=== PATIENT | male | born 1955 | race Caucasian/White ===

== ENCOUNTER 2020-10-17 17:48 | Emergency (ER) | payer MEDICARE, SELFPAY ==
[2020-10-17 17:56] VITALS: BP 171/106; PULSE 107; RESP 16; TEMP 36.6; O2SAT 94; BMI 34.4
--- NOTE | 2020-10-17 18:14 | W.ED.HEATRA ---
HPI - Head Injury General: Chief complaint: Head Injury Stated complaint: LAC HEAD INJURY Time Seen by Provider: 10/17/20 17:53 Source: patient and EMS Mode of arrival: EMS Limitations: no limitations History of Present Illness: HPI Narrative: 65-year-old male states he is working on a project today had a piece of tendon 4 x 4 slide off a roof struck him in the head. He states this happened just prior to arrival. He came in by EMS. He denies any loss of consciousness denies any nausea vomiting denies any headache. He denies any neck pain. He is not on any blood thinners. He states that he was bleeding quite a bit from the wound. He does have a 3 cm laceration to his forehead. Denies any other injuries. Associated symptoms: Deny nausea, neck pain or vomiting Review of Systems Const: Denies: fever(s), chills, body aches or change in appetite Eyes: Denies: blurry vision or eye discomfort ENMT: Denies: throat pain or dental pain Card: Denies: chest pain Resp: Denies: dyspnea GI: Denies: abdominal pain, nausea, vomiting or diarrhea : Denies: dysuria Musc: Denies: neck pain or back pain Skin/Breast: Denies: rash Neuro: Denies: headache(s) Psych: Denies: depression Anatoly/Lymph: Denies: easy bruising All/Imm: Denies: urticaria Physical Exam Const: COMMON NORMALS: no acute distress, patient oriented x3 and healthy appearing HENMT: COMMON NORMALS: normocephalic HEAD & SCALP: normocephalic OTHER: 3cm lac to forehead Eye: COMMON NORMALS: Equal, round and reactive pupils present and EOMs intact bilaterally PUPIL: Yes Equal, round and reactive pupils present Neck/C-Spine: COMMON NORMALS: full ROM and supple Chest: COMMONS NORMALS: normal inspection of the chest and normal palpation of entire chest wall Resp: COMMON NORMALS: normal respiratory effort, No retractions, No use of accessory muscles and clear to auscultation bilaterally AUSCULTATION: clear to auscultation bilaterally Cardio: COMMON NORMALS: regular rate, regular rhythm and No murmurs present (Cardio) RATE: regular rate RHYTHM: regular rhythm GI: COMMON NORMALS: Normal to inspection, nondistended, normoactive bowel sounds present, Soft to palpation, non-tender and no masses PALPATION: Yes Soft to palpation Extremity: COMMON NORMALS: normal to inspection and full ROM Neuro: COMMON NORMALS: patient oriented x3, moves all extremities and no focal motor deficits Psych: COMMON NORMALS: mental status grossly normal, Normal thought process present and cooperative THOUGHT PROCESS: Normal thought process present Skin: COMMON NORMALS: no rashes or lesions noted and no wounds GENERAL SKIN EXAM: no rashes or lesions noted Procedures Laceration Laceration 1: Site: face Size (cm): 3 Description: linear Depth: simple, single layer Local Anesthetic: lidocaine 1% Amount of anesthesia used (mL): 6 Pre-repair: wound explored and irrigated extensively Skin layer closed with: nylon Size (cm): 5-0 Number of sutures: 3 Technique: simple, interrupted Course Vital Signs: Vital signs: Vital Signs Temperature 97.9 F 10/17/20 17:56 Pulse Rate 107 H 10/17/20 17:56 Respiratory Rate 16 10/17/20 17:56 Blood Pressure 171/106 10/17/20 17:56 Pulse Oximetry 94 10/17/20 17:56 MDM - Head Injury MDM Narrative: Medical decision making narrative: Patient presents here with a head laceration. Laceration was repaired. He had no loss conscious no headache and is not any blood thinners. He does not require a head CT. He is to return if he has a headache or any loss of consciousness. Sutures need to be removed in a week. Discharge Plan Discharge Patient Disposition: Home Clinical Impression: Laceration of head Qualifiers: Encounter type: initial encounter Location of open wound of head: other part of head Foreign body presence: without foreign body Qualified Code(s): S01.81XA - Laceration without foreign body of other part of head, initial encounter Condition: Stable Discharge Orders: Discharge ED (Routine); Ordered 10/17/20 Ordered By: Jak Castillo Discharge Diet: Advance as tolerated Discharge Activity: Resume usual activity Patient Instructions: Laceration (ED) Activity Restrictions/Additional Instructions: suture removal in 7 days Coding Level of Care Code ED Resident Programs Assistant for Chrissy Argueta
[2020-10-17] MEDS: tetanus-dipt-pertussis 0.5 mL SDV IM (18:40)
== END 2020-10-17 18:49 | disposition home or self-care (01) ==
LOC: ER 18:22
PROVIDERS: Emergency Provider Emergency Medicine
DX: S01.81XA Laceration without foreign body of other part of head, initial encounter (principal); W20.8XXA Other cause of strike by thrown, projected or falling object, initial encounter; Z23 Encounter for immunization
CPT/HCPCS: 12013; 90471; 90715; 99282

== ENCOUNTER 2023-07-01 12:05 | Outpatient (CLI) | payer MEDICARE, OTHER, SELFPAY ==
--- NOTE | 2023-07-01 12:26 | XR_ITS ---
WS: [id number] Exam: XR chest 2V* [id number] Date/Time of Exam: 07/01/2023 12:32 PM Reason For Exam: CHRONIC OBSTRUCTIVE PULMONARY DZ W/ACUTE EXACERBATION No priors. The lungs are hyperinflated and clear. Normal cardiomediastinal silhouette. Bony structures appear no rmal. Spondylosis of the thoracic spine. IMPRESSION: 1. Pulmonary hyperinflation. No acute process.
[2023-07-01 12:59] LABS: Basophils # 0.1 10^3/uL (0.0-0.1); Basophils % 0.7 %; Eosinophils # 0.1 10^3/uL (0.0-0.8); Eosinophils % 1.4 %; Hematocrit 50.8 % (37-53); Lymphocytes # 1.1 10^3/uL (0.8-4.8); Lymphocytes % 13.5 %; Mean Corpuscular HGB Conc 32.1 g/dL (30-55); Mean Corpuscular Hemoglobin 30.9 pg (27-33); Mean Corpuscular Volume 96.4 fl (82-101); Mean Platelet Volume 9.7 fL (7.4-10.4); Monocytes # 0.5 10^3/uL (0.2-0.9); Monocytes % 6.4 %; Neutrophils # 6.54 10^3/uL (1.8-7.7); Neutrophils % 77.5 %; Nucleated Red Blood Cells % 0 %; Platelet Count 271 10^3/cmm (157-399); Red Blood Count 5.27 10^6/uL (3.85-5.65); Red Cell Distribution Width 14.4 % (12.1-15.1); White Blood Count 8.44 10^3/uL (3.29-11.43)
[2023-07-01 13:22] LABS: Alanine Aminotransferase 28 U/L (0-41); Albumin Level 4.6 g/dL (3.5-5.2); Alkaline Phosphatase 62 U/L (40-130); Anion Gap 14.3 (5-19); Aspartate Amino Transferase 26 U/L (0-40); Blood Urea Nitrogen 18 mg/dL (8-23); Calcium 9.7 mg/dL (8.5-10.5); Carbon Dioxide 33 mmol/L (22-29); Chloride 95 mmol/L (98-107); Globulin 3.4 g/dL (1.3-4.6); Glomerular Filtration Rate 73.9 mL/min (90-130); Glucose 127 mg/dL (65-115); Osmolality Calculated 289 mOsm/kg (285-295); Potassium 4.3 mmol/L (3.5-5.1); Sodium 138 mmol/L (136-145); Total Bilirubin 0.4 mg/dL (0.15-1.2)
[2023-07-01 13:32] LABS: NT Pro B Type Natriuretic Pept 84 pg/mL (0-125)
== END 2023-07-01 12:06 | disposition home or self-care (01) ==
LOC: LAB 12:14
PROVIDERS: PCP Family Medicine; Visit Provider Registered Nurse
DX: J44.1 Chronic obstructive pulmonary disease with (acute) exacerbation (principal); R07.9 Chest pain, unspecified; R91.8 Other nonspecific abnormal finding of lung field
CPT/HCPCS: 71046; 80053; 83880; 85025

== ENCOUNTER 2023-10-06 17:44 | Emergency (ER) | payer MEDICARE, OTHER, SELFPAY ==
[2023-10-06 17:47] VITALS: BP 178/99; PULSE 92; RESP 18; TEMP 36.8; O2SAT 97; BMI 28.7
--- NOTE | 2023-10-06 17:53 | ECG_ITS ---
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 Measurements Intervals [place] Rate: 93 P: 54 IN: 153 QRS: 44 QRSD: 85 T: 66 QT: 340 QTc: 424 Interpretive Statements SINUS RHYTHM NONSPECIFIC ST & T-WAVE ABNORMALITY No previous ECG available for comparison Electronically Signed On 10-06-2023 21:42:53 CDT by Brad Coburn M.D. [id number]
--- NOTE | 2023-10-06 17:53 | XRR_ITS ---
PROCEDURE INFORMATION: Exam: XR Chest Exam date and time: 10/06/2023 5:57 PM Age: 68 years old Clinical indication: Shortness of breath; Additional info: Dyspnea TECHNIQUE: Imaging protocol: Radiologic exam of the chest. Views: 1 view. COMPARISON: CR XR chest 2V* [id number] 07/01/2023 12:33 PM FINDINGS: Lungs: Unremarkable. No consolidation or mass. Pleural spaces: Unremarkable. No pleural effusion. No pneumothorax. Heart/Mediastinum: Unremarkable. No cardiomegaly. Bones/joints: Unremarkable. XR/XR chest 1V portable [id number] IMPRESSION: No acute findings.
--- NOTE | 2023-10-06 18:05 | ED_ITS ---
HPI - SOB/Dyspnea 2 General: Chief Complaint: Shortness of Breath/Dyspnea Stated Complaint: Resp Distress Time Seen by Provider: 10/06/23 17:46 History of Present Illness: HPI Narrative: Patient presents to the ER with complaints of shortness of breath. Patient states been getting more short of breath over the last few weeks. This is especially worse with exertion. Got so bad today that he decided to call the EMS. Patient does not have oxygen at home but he is using those [id number] breaths and it can at times to help which sounds like concentrated oxygen work take a few puffs whenever he needs it. On the way here EMS gave him 2 albuterol treatments, 1 DuoNeb treatment 125 mg Solu-Medrol. Patient arrived here on 6 L on aerosol mask and is satting 97% on room air. Patient denies any fevers chills patient does have a distant history of smoking. Review of Systems 2 General: Reports: 10 or more systems reviewed and unremarkable except in HPI and below Physical Exam 2 Const: COMMON NORMALS: no acute distress, average body habitus, patient oriented x3, no limitations, healthy appearing, alert and well nourished HENMT: COMMON NORMALS: normocephalic, atraumatic, hearing grossly normal bilaterally, external ears normal, Normal external nose present, moist oral mucous membranes and oropharynx normal HEAD & SCALP: normocephalic and atraumatic NOSE: Normal external nose present EXTERNAL EAR: Yes external ears normal Neck/C-Spine: COMMON NORMALS: full ROM, no lymphadenopathy, supple, no meningeal signs, no JVD and Thyroid normal THYROID: Thyroid normal Chest: COMMONS NORMALS: normal inspection of the chest and normal palpation of entire chest wall Resp: COMMON NORMALS: normal respiratory effort, No retractions and No use of accessory muscles; negative for clear to auscultation bilaterally (Diffuse wheezing) A USCULTATION: not clear to auscultation bilaterally (Diffuse wheezing) Cardio: COMMON NORMALS: no JVD, regular rate, regular rhythm, S1 normal heart sound present, S2 normal heart sound present, No gallops present (Cardio), No clicks present (Cardio), No murmurs present (Cardio) and No rub (Cardio) R ATE: regular rate RHYTHM: regular rhythm HEART SOUNDS: S1 normal heart sound present and S2 normal heart sound present GI: COMMON NORMALS: Normal to inspection, nondistended, normoactive bowel sounds present, Soft to palpation, non-tender, No hepatosplenomegaly present and no masses PALPATION: Yes Soft to palpation and Yes No hepatosplenomegaly present Neuro: COMMON NORMALS: patient oriented x3 SENSORIUM/ORIENTATION: Yes alert MENINGEAL SIGNS: Yes no meningeal signs Course 2 Vital Signs: Vital signs: Vital Signs Temperature 98.2 F 10/06/23 17:47 Pulse Rate 90 10/06/23 20:01 Respiratory Rate 29 H 10/06/23 20:01 Blood Pressure 178/99 10/06/23 20:01 Pulse Oximetry 89 L 10/06/23 20:01 Oxygen Delivery Me thod Nasal Cannula 10/06/23 18:16 Oxygen Flow Rate 3 10/06/23 18:16 MDM - SOB/Dyspnea Medical Decision Making Patient physical exam and evaluation done with lab work and chest x-ray and EKG, all of which was essentially benign. Patient was requiring 3 L of oxygen even after breathing treatments. Patient at home oxygen study which showed he required 3 L at rest and 5 L with ambulation. Patient be discharged home on home oxygen and steroids. Differential Diagnosis Likely acute exacerbation of chronic obstructive airways disease; Unlikely congestive heart failure, community acquired pneumonia, asthma with exacerbation or pulmonary embolism Medical Records I reviewed the patient's medical records. Lab Data I reviewed the patient's lab results. 10/06/23 17:16 10/06/23 17:16 Labs/Radiology: Radiology Impressions Chest X-Ray 10/06/23 17:53 IMPRESSION: No acute findings. Laboratory Results WBC 9.65 10^3/uL (3.29-11.43) 10/06/23 17:16 RBC 5.21 10^6/uL (3.85-5.65) 10/06/23 17:16 Hgb 15.60 g/dL (11.27-16.99) 10/06/23 17:16 Hct 49.6 % (37-53) 10/06/23 17:16 MCV 95.2 fl (82-101) 10/06/23 17:16 MCH 29.9 pg (27-33) 10/06/23 17:16 MCHC 31.5 g/dL (30-55) 10/06/23 17:16 RDW 14.8 % (12.1-15.1) 10/06/23 17:16 Plt Count 279 10^3/cmm (157-399) 10/06/23 17:16 MPV 10.5 fL (7.4-10.4) H 10/06/23 17:16 Neut % (Auto) 66.3 % 10/06/23 17:16 Lymph % (Auto) 18.4 % 10/06/23 17:16 Edwards % (Auto) 7.2 % 10/06/23 17:16 Eos % (Auto) 6.8 % 10/06/23 17:16 Baso % (Auto) 1.0 % 10/06/23 17:16 Neut # (Auto) 6.39 10^3/uL (1.8-7.7) 10/06/23 17:16 Lymph # (Auto) 1.8 10^3/uL (0.8-4.8) 10/06/23 17:16 Edwards # (Auto) 0.7 10^3/uL (0.2-0.9) 10/06/23 17:16 Eos # (Auto) 0.7 10^3/uL (0.0-0.8) 10/06/23 17:16 Baso # (Auto) 0.1 10^3/uL (0.0-0.1) 10/06/23 17:16 Nucleated RBC % (auto) 0 % 10/06/23 17:16 Nucleated RBCs # 0.0 /100WBC 10/06/23 17:16 Sodium 138 mmol/L (136-145) 10/06/23 17:16 Potassium 4.8 mmol/L (3.5-5.1) 10/06/23 17:16 Chloride 100 mmol/L (98-107) 10/06/23 17:16 Carbon Dioxide 28 mmol/L (22-29) 10/06/23 17:16 Anion Gap 14.8 (5-19) 10/06/23 17:16 BUN 17 mg/dL (8-23) 10/06/23 17:16 Creatinine 1.1 mg/dL (0.7-1.2) 10/06/23 17:16 GFR Calculation 66.2 mL/min (90-130) L 10/06/23 17:16 Glucose 115 mg/dL (65-115) 10/06/23 17:16 Calculated Osmolality 288 mOsm/kg (285-295) 10/06/23 17:16 Calcium 9.4 mg/dL (8.5-10.5) 10/06/23 17:16 Total Bilirubin 0.4 mg/dL (0.15-1.2) 10/06/23 17:16 AST 31 U/L (0-40) 10/06/23 17:16 ALT 32 U/L (0-41) 10/06/23 17:16 Alkaline Phosphatase 70 U/L (40-130) 10/06/23 17:16 Troponin T Baseline 18 ng/L (0-15) H 10/06/23 17:16 Troponin T 120 Minute 16.65 ng/L (0-15) H 10/06/23 19:59 Delta Troponin T -1.35 ABS# (0-10) L 10/06/23 19:59 Total Protein 8.3 g/dL (6.6-8.7) 10/06/23 17:16 Albumin 5.1 g/dL (3.5-5.2) 10/06/23 17:16 Globulin 3.2 g/dL (1.3-4.6) 10/06/23 17:16 All radiology interpretation(s) finalized by discharge Discharge Plan Discharge Patient Disposition: Home Clinical Impression: Acute exacerbation of chronic obstructive airways disease, Acute hypoxic respiratory failure Condition: Stable Prescriptions: New prednisone 50 mg tablet 50 mg PO DAILY Qty: 5 0RF Discharge Orders: Discharge ED (Routine); Ordered 10/06/23 Ordered By: Alexis Carbajal Other Ambulatory Orders: DME: Oxygen (Order) Location: None Selected Ordered By: Alexis Carbajal Referrals: Irene Vazquez MD [Primary Care Provider] - 1 week Patient Instructions: COPD (Chronic Obstructive Pulmonary Disease) (ED) Activity Restrictions/Additional Instructions: Please draft roller picker your prescriptions from the pharmacy and take them as directed. You will be supplied with home oxygen to use at 3 L/min per nasal cannula at all times and 5 L/min per nasal cannula with exertion. Please follow-up with your proximal physician for further evaluation testing as needed. Coding Level of Care Code ED Process Safety Manager for Chrissy Argueta
[2023-10-06 18:08] LABS: Basophils # 0.1 10^3/uL (0.0-0.1); Eosinophils # 0.7 10^3/uL (0.0-0.8); Eosinophils % 6.8 %; Hematocrit 49.6 % (37-53); Lymphocytes # 1.8 10^3/uL (0.8-4.8); Lymphocytes % 18.4 %; Mean Corpuscular HGB Conc 31.5 g/dL (30-55); Mean Corpuscular Hemoglobin 29.9 pg (27-33); Mean Corpuscular Volume 95.2 fl (82-101); Mean Platelet Volume 10.5 fL (7.4-10.4); Monocytes # 0.7 10^3/uL (0.2-0.9); Monocytes % 7.2 %; Neutrophils # 6.39 10^3/uL (1.8-7.7); Neutrophils % 66.3 %; Nucleated Red Blood Cells % 0 %; Platelet Count 279 10^3/cmm (157-399); Red Blood Count 5.21 10^6/uL (3.85-5.65); Red Cell Distribution Width 14.8 % (12.1-15.1); White Blood Count 9.65 10^3/uL (3.29-11.43)
[2023-10-06 18:16] VITALS: BP 178/99; PULSE 89; O2SAT 90
[2023-10-06 18:33] LABS: Troponin(5th) Baseline 18 ng/L (0-15)
[2023-10-06 18:38] LABS: Alanine Aminotransferase 32 U/L (0-41); Albumin Level 5.1 g/dL (3.5-5.2); Alkaline Phosphatase 70 U/L (40-130); Anion Gap 14.8 (5-19); Aspartate Amino Transferase 31 U/L (0-40); Blood Urea Nitrogen 17 mg/dL (8-23); Calcium 9.4 mg/dL (8.5-10.5); Carbon Dioxide 28 mmol/L (22-29); Chloride 100 mmol/L (98-107); Creatinine Clr Calc Pharmacy 70.7841; Globulin 3.2 g/dL (1.3-4.6); Glomerular Filtration Rate 66.2 mL/min (90-130); Glucose 115 mg/dL (65-115); Osmolality Calculated 288 mOsm/kg (285-295); Potassium 4.8 mmol/L (3.5-5.1); Sodium 138 mmol/L (136-145); Total Bilirubin 0.4 mg/dL (0.15-1.2); Total Protein 8.3 g/dL (6.6-8.7)
--- NOTE | 2023-10-06 19:57 | ECG_ITS ---
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 Measurements Intervals [place] Rate: 91 P: 34 [place]: 154 QRS: 36 QRSD: 91 T: 74 QT: 352 QTc: 433 Interpretive Statements SINUS RHYTHM NONSPECIFIC T-WAVE ABNORMALITY Compared to ECG 10/06/2023 17:47:19 No significant changes Electronically Signed On 10-07-2023 18:47:18 CDT by Brad Cobunr M.D. [id number]
[2023-10-06 20:01] VITALS: BP 178/99; PULSE 90; RESP 29; O2SAT 89
[2023-10-06 20:35] LABS: Troponin 5 2HR 16.65 ng/L (0-15)
[2023-10-06 20:40] LABS: Troponin 5 2HR Delta -1.35 ABS# (0-10)
[2023-10-06 20:48] VITALS: O2SAT 84; O2SAT 85; O2SAT 90
[2023-10-06 21:23] VITALS: BP 127/80; PULSE 100; O2SAT 92
[2023-10-06 21:34] VITALS: BP 158/110; PULSE 96; O2SAT 90
== END 2023-10-06 21:25 | disposition home or self-care (01) ==
PROVIDERS: Emergency Provider Emergency Medicine; PCP Family Medicine
DX: J44.1 Chronic obstructive pulmonary disease with (acute) exacerbation (principal); J96.01 Acute respiratory failure with hypoxia
CPT/HCPCS: 36415; 71045; 80053; 84484; 85025; 93005; 99285

== ENCOUNTER 2023-10-25 13:36 | Emergency (ER) | payer MEDICARE, OTHER, SELFPAY ==
[2023-10-25 13:38] VITALS: PULSE 94; RESP 17; O2SAT 95
--- NOTE | 2023-10-25 13:44 | W.ED.LOWEXIN ---
HPI - Extremity Injury (Lower) General: Chief Complaint: Wound/Laceration Stated Complaint: RIGHT CALF LAC Time Seen by Provider: 10/25/23 13:44 History of Present Illness: Patient comes in for evaluation of injury to the right lower leg. Patient reports he was stripping some wire when he dropped his cutter and accidentally cut his right posterior lower leg. Patient has a 6 cm laceration to the posterior right lower leg. Patient is ambulatory. Patient has bleeding controlled. Patient cannot recall his last tetanus. Review of Systems General: Reports: 10 or more systems reviewed and unremarkable except in HPI and below Skin/Breast: Reports: new lesions (6cm laceration) Physical Exam Const: COMMON NORMALS: alert HENMT: COMMON NORMALS: normocephalic HEAD & SCALP: normocephalic Neck/C-Spine: COMMON NORMALS: full ROM Resp: COMMON NORMALS: normal respiratory effort and clear to auscultation bilaterally AUSCULTATION: clear to auscultation bilaterally Cardio: COMMON NORMALS: regular rate RATE: regular rate GI: COMMON NORMALS: non-tender Back/Pelvis: COMMON NORMALS: thoracic and lumbar spine normal to inspection Extremity: RIGHT LOWER EXTREMITY: Yes lower leg (6cm posterior laceration) Neuro: SENSORIUM/ORIENTATION: Yes alert Skin: TRAUMA: laceration (6cm right posterior leg) linear Procedures Laceration Laceration 1: Site: lower extremity Side (If applicable): right Size (cm): 6 Description: linear Depth: simple, single layer Local Anesthetic: lidocaine 1% and with epi Amount of anesthesia used (mL): 6 Pre-repair: wound explored and irrigated extensively Skin layer closed with: nylon Size (cm): 4-0 Number of sutures: 6 Technique: simple, interrupted (1) and horizontal mattress (5) Course Vital Signs: Vital signs: Vital Signs Pulse Rate 94 10/25/23 13:38 Respiratory Rate 17 10/25/23 13:38 Pulse Oximetry 95 10/25/23 13:38 Oxygen Delivery Me thod Nasal Cannula 10/25/23 13:38 MDM - Extremity Injury (Lower) Medical Decision Making 68-year-old male patient comes in today with injury to the right lower leg. On exam patient has a 6 cm laceration to the posterior right lower leg. Wound is clean. Bleeding is controlled. No foreign body was noted. Lower and structures are intact. Differential diagnosis includes need for prophylaxis tetanus, foreign body, laceration. Wound was cleaned and irrigated well. Patient was then wound was closed with horizontal mattress sutures and 1 simple interrupted suture. Patient tolerated well. Patient be covered with cephalexin for prophylaxis antibiotic. Recommend sutures out in 10 to 14 days. Patient reported understanding and agreed to plan. No radiology studies performed this visit Discharge Plan Discharge Patient Disposition: Home Clinical Impression: Laceration of lower leg, right Qualifiers: Encounter type: initial encounter Qualified Code(s): S81.811A - Laceration without foreign body, right lower leg, initial encounter Condition: Stable Prescriptions: New cephalexin 500 mg capsule 500 mg PO BID 10 Days Qty: 20 0RF No Action prednisone 50 mg tablet 50 mg PO DAILY Qty: 5 0RF Discharge Orders: Discharge ED (Routine); Ordered 10/25/23 Ordered By: Dayron Borjas Referrals: Irene Vazquez MD [Primary Care Provider] - Discharge Diet: Usual diet Discharge Activity: Increase activity as tolerated Patient Instructions: Care For Your Stitches (ED), Laceration (ED) Activity Restrictions/Additional Instructions: Keep wound clean and dry. Is very important keep the wound as dry as possible for the next 48 hours. After that you can clean wound gently with some soap and water. Try not to submerge the wound underwater for long periods of time. Monitor site for increasing redness or soreness. Sutures need to come out in 10 to 14 days. Follow-up with primary care in 1 week for recheck. Take prophylaxis antibiotic 1 tablet twice a day for the next 10 days. Return to ER for new concerns or worsening symptoms. Coding Level of Care Code ED Physical Plant Employee for Chrissy Argueta
[2023-10-25] MEDS: cephALEXin 500 mg Capsule PO (14:23)
[2023-10-25] MEDS: tetanus-dipt-pertussis 0.5 mL SDV IM (14:25)
[2023-10-25 14:51] VITALS: PULSE 92; RESP 17; O2SAT 96
== END 2023-10-25 14:55 | disposition home or self-care (01) ==
PROVIDERS: Emergency Provider Nurse Practitioner Family; PCP Family Medicine
DX: S81.811A Laceration without foreign body, right lower leg, initial encounter (principal); W27.8XXA Contact with other nonpowered hand tool, initial encounter; Z23 Encounter for immunization
CPT/HCPCS: 12002; 90471; 90715; 99283